=== PATIENT | female | born 1960 | race Caucasian/White ===

== ENCOUNTER 2020-06-04 08:26 | Emergency (ER) | payer OTHER ==
[2020-06-04 09:18] LABS: BASOPHIL 0.4 % (0-2); EOSINOPHIL 3.2 % (0-5); HCT 47.7 % (37.0-47.0); HGB 16.5 g/dl (12.5-16.0); MCH 30.3 pg (25.0-31.0); MCHC 34.6 g/dL (32.0-36.0); MCV 87.7 fL (78.0-100.0); MONOCYTE 9.3 % (0-12); MPV 9.3 fL (6.0-9.5); NEUTROPHIL 55.9 % (41-80); NRBC 0; PLT 208 K/uL (150-400); RBC 5.44 M/uL (4.20-5.40); RDW 12.3 % (11.5-14.0); WBC 4.7 K/uL (4.0-10.5)
[2020-06-04 09:21] LABS: BILIRUBIN NEGATIVE (NEGATIVE); BLOOD NEGATIVE Ery/uL (NEGATIVE); CLARITY CLEAR (CLEAR); COLOR YELLOW (YELLOW); GLUCOSE (U) NORMAL (NORMAL); LEUKOCYTES NEGATIVE Leu/uL (NEGATIVE); NITRITE NEGATIVE (NEGATIVE); PROTEIN NEGATIVE (NEGATIVE); SPECIFIC GRAVITY 1.025 (1.001-1.030); UROBILINOGEN 0.2 mg/dL (0.2-1.0); pH 5.5 (5.0-9.0)
[2020-06-04 09:25] LABS: AMPHETAMINES NEGATIVE (NEGATIVE); BARBITURATES NEGATIVE (NEGATIVE); ECSTASY (MDMA) NEGATIVE (NEGATIVE); MARIJUANA (THC) NEGATIVE (NEGATIVE); METHADONE NEGATIVE (NEGATIVE); OPIATES NEGATIVE (NEGATIVE); OXYCODONE NEGATIVE (NEGATIVE)
[2020-06-04 09:31] LABS: ALBUMIN 4.1 g/dL (3.4-5.0); BILIRUBIN - TOTAL 0.8 mg/dL (0.2-1.0); BUN/CREAT RATIO (CALC) 17.4 RATIO; CREATININE 0.86 mg/dL (0.51-0.95); GLOBULIN (CALCULATION) 3.5 g/dL; POTASSIUM 3.3 mmol/L (3.5-5.1); TOTAL PROTEIN 7.6 g/dL (6.4-8.2)
== END 2020-06-04 13:33 | disposition home or self-care (01) ==
LOC: FER 08:26
PROVIDERS: Emergency Medicine
DX: R41.82 Altered mental status, unspecified (principal); G47.00 Insomnia, unspecified; Z79.899 Other long term (current) drug therapy
CPT/HCPCS: 36415; 70450; 70551; 80053; 80305; 81003; 85025